=== PATIENT | male | born 1950 | race Caucasian/White ===

== ENCOUNTER 2018-06-29 17:11 | Emergency (ER) | payer BC ==
[~2018-06-29] VITALS: Ht 193 cm; Wt 92.9 kg
[2018-06-29 17:15] VITALS: BP 169/97; TEMP 97.9
[2018-06-29] MEDS ORDERED: SINGULAIR 110 MG/TAB PO (17:37)
[2018-06-29 18:36] LABS: BASO % 0.4 % (0.0-2.0); EOS # 0.2 (0.0-0.7); EOS % 3.7 % (0-4.0); GRAN # 3.8 (1.4-6.5); GRAN % 68.9 % (42.2-75.2); HEMATOCRIT 44.8 % (42.0-52.0); HEMOGLOBIN 15.1 g/dl (13.5-18.0); LYMPH % 18.9 % (20.0-51.0); MEAN CELL VOLUME 88 fl (80.0-100.0); MEAN CORPUSCULAR HEMOGLOBIN 30 pg (27.0-31.0); MEAN CORPUSCULAR HGB CONC 34 g/dl (33.0-37.0); MEAN PLATELET VOLUME 10.4 fl (7.4-10.4); MONO # 0.4 (0.1-0.6); MONO % 7.7 % (1.7-9.3); PLATELET COUNT 160 K/mm3 (130-400); RED BLOOD COUNT 5.08 M/mm3 (4.20-5.60); REDCELL DISTRIBUTION WIDTH-CV 13.1 % (11.5-14.5)
[2018-06-29 18:41] LABS: INR 0.9 (0.8-3.0); PROTHROMBIN TIME 10.4 SECONDS (9.7-12.8)
[2018-06-29 18:47] LABS: ALANINE AMINOTRANSFERASE 463 U/L (21-72); ALBUMIN 4.2 gm/dL (3.5-5.0); ALKALINE PHOSPHATASE 225 U/L (50-136); ANION GAP 7 mmol/L (7-16); AST,SGOT 162 U/L (15-37); BILIRUBIN,TOTAL 2.7 mg/dL (0.0-1.0); BLOOD UREA NITROGEN 13 mg/dL (9-20); CALCIUM 9.3 mg/dL (8.4-10.2); CARBON DIOXIDE 23 mmol/L (22-30); CHLORIDE 103 mmol/L (98-107); CREATININE, serum 0.75 (0.66-1.25); GLUCOSE 96 mg/dL (74-106); LIPASE 116 U/L (23-300); POTASSIUM 3.8 mmol/L (3.4-5.0); SODIUM 132 mmol/L (137-145); TOTAL PROTEIN 7.3 gm/dL (6.4-8.2)
[2018-06-29 19:03] LABS: TROPONIN-I < 0.012 ng/mL (0.000-0.035)
[2018-06-29 19:16] LABS: COLLECTION METHOD CLEAN CATCH
[2018-06-29 19:24] LABS: MUCOUS Present /lpf; PH 6 (5-8); SQUAMOUS EPITHELIAL None Seen /hpf; URINE APPEARANCE Clear; URINE BACTERIA None Seen /hpf; URINE BILIRUBIN Negative (NEGATIVE); URINE BLOOD Negative (NEGATIVE); URINE COLOR Yellow; URINE GLUCOSE Negative (NEGATIVE); URINE KETONE 1+ (NEGATIVE); URINE LEUKOCYTE ESTERASE Negative (NEGATIVE); URINE NITRATE Negative (NEGATIVE); URINE PROTEIN(semi-quant) Negative (NEGATIVE); URINE RBC 0-2 /hpf
[2018-06-29] MEDS ORDERED: ZOFRAN ODT4 MG PO (20:04)
[2018-06-29 20:10] VITALS: PULSE 80
== END 2018-06-29 20:10 | disposition home or self-care (01) ==
LOC: COL.ER 17:11
PROVIDERS: Emergency Medicine; Nurse Practitioner
DX: R17 Unspecified jaundice (principal)
CPT/HCPCS: J2405; J7030; Q9967